=== PATIENT | female | born 1980 | race Caucasian/White ===

== ENCOUNTER 2021-03-18 05:43 | Inpatient (IN) ==
--- NOTE | 2021-03-13 10:11 | Anesthesiology Consultation ---
Date of Service March 13, 2021 Assessment & Plan Chart Review Chart Review: Acceptable Risk for Surgery and Patient NOT seen in Pre Admission Testing History Surgery Operation Date: 03/18/21 07:30 Proposed Procedures p Section in LD - Micheal Ortiz MD Height/Weight Height: 5 ft 6 in Weight: 90.718 kg Allergies Allergy/AdvReac Type Severity Reaction Status Date / Time broccoli Allergy Intermediate Abdominal Verified 03/13/21 07:36 Pain lettuce Allergy Intermediate Abdominal Verified 03/13/21 07:36 Pain No Known Drug Allergies Allergy Verified 03/13/21 07:36 Medications Home Medications Medication Instructions Recorded Confirmed Last Taken cholecalciferol (vitamin D3) 50 50 mcg PO QAM 08/28/20 03/13/21 02/27/21 08:00 mcg (2,000 unit) capsule aspirin 81 mg chewable tablet 81 mg PO QAM 02/27/21 03/13/21 02/27/21 08:00 labetalol 100 mg tablet 100 mg PO TID 02/27/21 03/13/21 02/27/21 08:00 [id number] 1 mg 1 tab PO QAM 02/27/21 03/13/21 02/27/21 08:00 tablet diphenhydramine HCl 25 mg capsule 25 mg PO HS 03/13/21 03/13/21 Unknown (Benadryl) naltrexone 4.5 mg PO HS 03/13/21 03/13/21 Unknown Past Medical History Medical History Hypertension started 02/2021 during last trimester of -- no problems prior to conceived through in vitro fertilization follows with a physician in [place]. patient states she was placed on naltrexone due to the infertility and invitro. no history of drug use. Past Family History Family History Uncle Diabetes Other No family history of adverse response to anesthesia Denies family history of Ovarian cancer Breast cancer Colorectal cancer Past Surgical History Surgical History H/O laparoscopy History of dilatation and curettage Hx of unilateral salpingectomy r/t ectopic S/P tonsillectomy [place] teeth extracted Social History Smoking Status: Former smoker tobacco type: cigarettes Do You Dip or Chew Tobacco: No Smoking End Date: 2018 Hx Alcohol Use: No Hx Substance Use: No substance use type: does not use
[2021-03-18] MEDS ORDERED: LACTATED RINGER'S 1,000 ML IV SCH ×3 (06:00→09:30)
[2021-03-18] MEDS ORDERED: cefOXitin 2,000 MG in DEXTROSE 5% 50 ML IV SCH (06:00)
[2021-03-18] MEDS ORDERED: CITRIC ACID/SODIUM CITRATE 15 ML UDC PO SCH (06:00)
[2021-03-18 06:08] LABS: Basophils # (auto) 0.02 K/uL (0-0.2); Basophils % (auto) 0.3 %; Eosinophils # (auto) 0.19 K/uL (0-0.5); Eosinophils % (auto) 2.5 %; Hematocrit (blood only) 36.7 % (37-47); Hemoglobin 12.8 g/dL (12.0-16.0); Immature Granulocytes # (auto) 0.02 K/uL (0.00-0.02); Immature Granulocytes % (auto) 0.3 %; Lymphocytes # (auto) 1.72 K/uL (1.2-3.4); Lymphocytes % (auto) 22.8 %; Mean Corpuscular Hemoglobin 32.5 pg (25-34); Mean Corpuscular Hgb Conc 34.9 g/dL (32-36); Mean Corpuscular Volume 93.1 fL (80-100); Mean Platelet Volume 9.5 fL (7.4-10.4); Monocytes # (auto) 0.92 K/uL (0.11-0.59); Monocytes % (auto) 12.2 %; Neutrophils # (auto) 4.67 K/uL (1.4-6.5); Neutrophils % (auto) 61.9 %; Platelet Count 299 K/uL (130-400); RDW Coefficient of Variation 12.7 % (11.5-14.5); RDW Standard Deviation 42.9 fL (36.4-46.3); Red Blood Count 3.94 M/uL (4.2-5.4); White Blood Count 7.54 K/uL (4.8-10.8)
[2021-03-18 06:22] LABS: INR 0.9 (0.9-1.1); Partial Thromboplastin Ratio 0.9; Partial Thromboplastin Time 24.2 Seconds (21.0-31.0); Prothrombin Time 9.3 Seconds (9.0-12.0)
[2021-03-18 06:26] LABS: BUN Creatinine Ratio 21.8 (10-20); Calcium 8.2 mg/dl (8.5-10.1); Creatinine Clr Calc Pharmacy 128.5 ml/min; Est GFR (African American) 128.1 ml/min; Est GFR (Non-African American) 110.5 ml/min; Potassium 3.9 mmol/L (3.5-5.1)
[2021-03-18] MEDS ORDERED: fentaNYL citrate 100 MCG/2 ML VIAL ONE (07:49)
[2021-03-18] MEDS ORDERED: MoRPHine SULFATE PF 1 MG/ML 10 ML AMP/VIAL ONE (07:49)
[2021-03-18] MEDS ORDERED: OXYTOCIN 10 UNITS/ML VIAL ONE (07:49)
--- NOTE | 2021-03-18 08:21 | History and Physical Report ---
ADDENDUM Originally H and P indicated that the was in a breech presentation. Since the H and P was done , we reexamined the patient and she converted to vertex. I offered the patient an induction instead of a primary , but due to her obstetrical history and complications, she decided on primary elective for delivery. Job ID: [id number]
[2021-03-18] MEDS ORDERED: NALOXONE HCL 0.08 MG in SYRINGE 1.8 ML IV PRN (08:30)
[2021-03-18] MEDS ORDERED: NALBUPHINE HCL INJ 10 MG/ML AMP IV PRN (08:30)
[2021-03-18] MEDS ORDERED: SODIUM CHLORIDE 0.9% 1000ML 1,000 ML IV SCH (08:30)
[2021-03-18] MEDS ORDERED: diphenhydrAMINE 50 MG/ML VIAL IV PRN (08:30)
[2021-03-18] MEDS ORDERED: NALOXONE HCL 1 MG in SODIUM CHLORIDE 0.9% 1000ML 1,000 ML IV PRN (08:30)
[2021-03-18] MEDS ORDERED: MoRPHine SULFATE PF 1 MG/ML 10 ML AMP/VIAL INT SPINAL ONE (08:30)
[2021-03-18] MEDS ORDERED: NALOXONE HCL 0.4 MG/1 ML VIAL/CARP IV PRN (08:30)
[2021-03-18] MEDS ORDERED: NO NARCOTICS OR SEDATIVES SCH (08:30)
[2021-03-18] MEDS ORDERED: ePHEDrine sulfate 50 MG/ML AMP IV PRN (08:30)
[2021-03-18] MEDS ORDERED: KETOROLAC 30 MG/ML VIAL IV PRN (08:30)
[2021-03-18] MEDS ORDERED: MEPERIDINE HCL 25 MG/ML CARP/VIAL IV PRN (08:30)
[2021-03-18] MEDS ORDERED: LACTATED RINGER'S 500 ML IV PRN (08:30)
--- NOTE | 2021-03-18 09:23 | Post Operative Brief Note ---
Immediate Post Op Note v1 Date of Surgery March 18, 2021 Pre & Post Diagnosis Operation Date: 03/18/21 07:30 Pre-Op Diagnosis: 37.1 weeks , Breech,Advanced Maternal Age hypertension Post-Op Diagnosis: Same; Delivery of a live male child at 0837 ( Main OR 3) I identified the patient and participated in the time-out.: Yes Procedure Operation Date: 03/18/21 07:30 Actual Procedures p Section - Micheal Ortiz MD Surgeon Micheal Ortiz MD Medical Insurance Verifier Dr Mendoza Estimated Blood Loss 400 Findings Consistent with Post-Op Diagnosis Drains [place] Catheter Anesthesia Type Spinal Complications none
[2021-03-18] MEDS ORDERED: ONDANSETRON INJ 2 MG/ML 2 ML VIAL IV PRN (09:25)
[2021-03-18] MEDS ORDERED: SENNA 8.6 MG TAB PO PRN (09:25)
[2021-03-18] MEDS ORDERED: DIPHTHERIA/TETANUS/PERTUSSIS 0.5 ML SYR/VIAL IM ONE (09:25)
[2021-03-18] MEDS ORDERED: MAGNESIUM HYDROXIDE SUSP 30 ML UDC PO PRN (09:25)
[2021-03-18] MEDS ORDERED: SUPERCREAM 0.870% 15 GM JAR EXT PRN (09:25)
[2021-03-18] MEDS ORDERED: HYDROCORTISONE ACETATE 25 MG SUPP PR PRN (09:25)
[2021-03-18] MEDS ORDERED: BENZOCAINE 20% AER SPR 82.5 GM CAN EXT PRN (09:25)
--- NOTE | 2021-03-18 09:39 | Operative Report (OR) ---
DATE OF PROCEDURE: 03/18/2021. PROCEDURE: Primary low segment section. INDICATIONS FOR SURGERY: Intrauterine , 37 weeks 2 days, unstable lie, hypertension, growth retardation. PREOPERATIVE DIAGNOSES: Intrauterine , 37 weeks 2 days, hypertension, growth retardation, u nstable lie. POSTOPERATIVE DIAGNOSES: Intrauterine , 37 weeks 2 days, hypertension, growth retardation, unstable lie. Delivered live male . SURGEON: Joe Ortiz MD. COLLEGE ATHLETE: Lukas Navarro MD. ESTIMATED BLOOD LOSS: 400 mL ANESTHESIA: Spinal. OPERATIVE FINDINGS AND PROCEDURE: The patient was brought to the OR table, correctly identified by a rmband and conversation. Spinal anesthesia was administered. Compression stockings were applied. F oley catheter was inserted aseptically in the bladder, connected to gravity drainage. Lower abdomen a nd upper thighs were painted with an alcohol based sterilizing solution, was allowed to dry for 3 min utes, and then draped in the usual sterile fashion. Level of the anesthesia was tested and found to be adequate. Pfannenstiel incision was made, carried down to the anterior fascia by sharp dissection . Hemostasis was secured by electrocauterization. Fascia was incised transversely the fa scia from the underlying muscle. Recti muscles were in the midline. Peritoneum was carefu lly raised and entered. A retractor was placed into the abdominal wall, exposing the lower uterine s egment incision was made above the vesicouterine fold. Bladder was undermined bluntly pushed off the operative field. Then, the uterus was scored with a knife and then entered bluntly with the scissor s. Clear amniotic fluid was seen at this time, there was just a small amount. Incision was then exte nded laterally with 2 fingers. A vectis retractor was applied to the head with fundal pressure, infa nt was delivered. breathing, cried spontaneously, was attended to by the coal inspector who was scrubbed and present at the time of delivery. Cord blood was stripped in to the infant then clamped and cut and cord blood was taken. Placenta was removed without difficulty. Uterus, tubes, and ova michelle were brought out through the incision. At that time, the right tube was present. The fimbria w as present. The left tube was absent and just approximately about 1 inch of the proximal portion of the left tube present. We injected 10 units of Pitocin into the myometrium itself. We delineated th e defects with ring forceps and then did a 2-layer closure. The deep layer was approximated with a c ontinuous heavy chromic gut suture. Then, the fascial layer was approximated over this with a contin uous heavy Vicryl suture. This gave good approximation to the myometrial defect. Hemostasis was goo d. Pelvis was cleansed of all blood clots and debris. The retractor was removed. Uterus, tubes, an d ovaries were reinserted into the abdomen. The bladder flap was restored with a continuous 3-0 seismograph operator helper ramon in a running fashion. Hemostasis was checked for, it was excellent and cut the sutures. We then did a careful anatomical approximation of the anterior abdominal wall. Peritoneum was closed with a mattress suture of chromic catgut. Recti muscles were approximated with interrupted [id number] suture chromic catgut. Fascia was closed with continuous interlocking suture of Vicryl on each side tied in the midline. Subcutaneous was approximated with a running plain. The skin edges were appro ximated with staple clips. Job ID: [id number]
--- NOTE | 2021-03-18 10:21 | Anesthesiology Progress Note ---
Date of Service March 18, 2021 Anesthesia Post Procedure Vital Signs Vital Signs: Temp Pulse Resp BP Pulse Ox 03/18/21 10:18 59 L 97 03/18/21 10:16 57 L 137/80 03/18/21 10:13 62 99 03/18/21 10:08 59 L 100 03/18/21 10:06 75 140/84 92 03/18/21 10:05 71 16 140/84 98 03/18/21 10:03 65 99 03/18/21 09:58 63 142/76 H 96 03/18/21 09:55 70 16 142/76 H 98 03/18/21 09:53 74 100 03/18/21 09:48 73 93 03/18/21 09:47 78 140/85 93 03/18/21 09:45 73 16 140/85 94 03/18/21 09:43 74 99 03/18/21 09:42 64 93 03/18/21 09:38 63 98 03/18/21 09:36 65 114/64 03/18/21 09:35 68 18 114/64 96 03/18/21 09:33 76 94 03/18/21 09:28 68 97 03/18/21 09:27 68 94 03/18/21 09:25 98.2 F 63 20 115/74 99 03/18/21 07:11 63 171/96 H 03/18/21 05:53 98.4 F 80 18 155/89 H 03/18/21 05:52 80 155/89 H 03/18/21 05:49 75 148/97 H Transfer of Care Handoff Completed per policy Notes Mental Status: alert / awake / arousable and participated in evaluation Nausea / Vomiting: adequately controlled Pain: adequately controlled Airway Patency, RR, SpO2: stable & adequate BP & HR: stable & adequate Hydration State: stable & adequate Neuraxial Anesthesia: was administered and sensory block is resolving Anesthetic Complications: no major complications apparent and Pt Satisfied with anesthetic care
[2021-03-18] MEDS: OXYTOCIN 20 UNITS in LACTATED RINGER'S 1,000 ML IV SCH ×2 (12:21→21:09)
[2021-03-18] MEDS: SIMETHICONE 80 MG CHEW PO SCH ×3 (13:52→21:09)
[2021-03-18] MEDS: LABETALOL HCL 100 MG TAB PO SCH ×2 (14:01→21:09)
[2021-03-18] MEDS: DOCUSATE SODIUM 100 MG CAP PO SCH (21:09)
[2021-03-19] MEDS ORDERED: diphenhydrAMINE Capsule 25 MG CAP PO PRN (02:30)
[2021-03-19] MEDS ORDERED: DC INTRASPINAL MORPHINE ONE (02:30)
[2021-03-19] MEDS ORDERED: ZOLPIDEM TARTRATE 5 MG TAB PO PRN (02:30)
[2021-03-19] MEDS ORDERED: diphenhydrAMINE 50 MG/ML VIAL IV PRN (02:30)
[2021-03-19] MEDS ORDERED: PROMETHAZINE HCL 25 MG in SODIUM CHLORIDE 0.9% 50 ML IV PRN (02:30)
[2021-03-19] MEDS ORDERED: MEPERIDINE HCL 50 MG/ML CARP IV PRN (02:30)
[2021-03-19] MEDS ORDERED: KETOROLAC 30 MG/ML VIAL IV PRN (02:30)
[2021-03-19 06:35] LABS: Basophils # (auto) 0.03 K/uL (0-0.2); Basophils % (auto) 0.2 %; Eosinophils # (auto) 0.23 K/uL (0-0.5); Eosinophils % (auto) 1.6 %; Hematocrit (blood only) 37.9 % (37-47); Hemoglobin 13.1 g/dL (12.0-16.0); Immature Granulocytes # (auto) 0.03 K/uL (0.00-0.02); Immature Granulocytes % (auto) 0.2 %; Lymphocytes # (auto) 2.62 K/uL (1.2-3.4); Lymphocytes % (auto) 17.8 %; Mean Corpuscular Hemoglobin 32.8 pg (25-34); Mean Corpuscular Hgb Conc 34.6 g/dL (32-36); Mean Corpuscular Volume 94.8 fL (80-100); Mean Platelet Volume 9.2 fL (7.4-10.4); Monocytes # (auto) 1.05 K/uL (0.11-0.59); Monocytes % (auto) 7.2 %; Neutrophils # (auto) 10.72 K/uL (1.4-6.5); Platelet Count 293 K/uL (130-400); RDW Coefficient of Variation 13.3 % (11.5-14.5); RDW Standard Deviation 45.6 fL (36.4-46.3); White Blood Count 14.68 K/uL (4.8-10.8)
[2021-03-19] MEDS: PRENATAL VITAMIN 1 TAB PO SCH (08:02)
[2021-03-19] MEDS: DOCUSATE SODIUM 100 MG CAP PO SCH ×2 (08:02→20:25)
[2021-03-19] MEDS: oxyCODONE/ACETAMINOPHEN 5mg/325mg TAB PO PRN ×3 (08:03→20:26)
[2021-03-19] MEDS: SIMETHICONE 80 MG CHEW PO SCH ×4 (08:03→20:26)
[2021-03-19] MEDS: FERROUS SULFATE 325 MG TAB PO SCH (08:03)
[2021-03-19] MEDS: LABETALOL HCL 100 MG TAB PO SCH ×3 (08:04→21:41)
[2021-03-19] MEDS: IBUPROFEN 600 MG TAB PO PRN ×3 (08:04→20:26)
--- NOTE | 2021-03-19 13:01 | Obstetrical Progress Note ---
Date of Service March 19, 2021 Assessment & Plan Admission and Anticipated Discharge Date Admission Date: March 18, 2021 Subjective abdomen soft and non tender passing flatus no calf tenderness ambulating well vaginal bleeding scant hgb 13.1 Results & Data ([facility]) Vital Signs (Past 12 Hours) Vital Signs Temp Pulse Resp BP Pulse Ox 03/19/21 08:00 36.6 C 87 16 128/80 98 03/19/21 03:25 37.1 C 77 16 119/77 98 03/19/21 02:30 16 96 03/19/21 01:30 18 96
[2021-03-19] MEDS ORDERED: bisacodyL 5 MG TABEC PO SCH (20:00)
[2021-03-20] MEDS: oxyCODONE/ACETAMINOPHEN 5mg/325mg TAB PO PRN ×2 (00:23→08:45)
[2021-03-20] MEDS: IBUPROFEN 600 MG TAB PO PRN ×2 (00:23→08:44)
[2021-03-20 06:24] LABS: Hematocrit (blood only) 33.3 % (37-47); Hemoglobin 11.1 g/dL (12.0-16.0)
[2021-03-20] MEDS: SIMETHICONE 80 MG CHEW PO SCH (08:44)
[2021-03-20] MEDS: FERROUS SULFATE 325 MG TAB PO SCH (08:44)
[2021-03-20] MEDS: LABETALOL HCL 100 MG TAB PO SCH (08:44)
[2021-03-20] MEDS: PRENATAL VITAMIN 1 TAB PO SCH (08:44)
[2021-03-20] MEDS: DOCUSATE SODIUM 100 MG CAP PO SCH (08:44)
--- NOTE | 2021-03-20 09:11 | Obstetrical Progress Note ---
Date of Service March 20, 2021 Assessment & Plan Admission and Anticipated Discharge Date Admission Date: March 18, 2021 Subjective abdomen soft and non tender incision is clean and dry no calf tenderness ambulating well vaginal bleeding scant hgb 11.1 Results & Data ([facility]) Vital Signs (Past 12 Hours) Vital Signs Temp Pulse Resp BP 03/20/21 00:15 36.9 C 77 16 132/85 03/19/21 21:40 79 136/85
[2021-03-20] MEDS ORDERED: bisacodyL 10 MG SUPP PR PRN (09:25)
--- NOTE | 2021-03-20 09:36 | Anesthesiology Progress Note ---
Date of Service March 20, 2021 Anesthesia Post Procedure Vital Signs Vital Signs: Temp Pulse Resp BP Pulse Ox 03/20/21 00:15 36.9 C 77 16 132/85 03/19/21 21:40 79 136/85 03/19/21 15:50 36.9 C 72 20 134/86 96 Pain Intensity Lower Abdomen: Pain Intensity: 4 Transfer of Care Handoff Completed per policy Notes Mental Status: alert / awake / arousable Patient Amnestic to Procedure: Yes Nausea / Vomiting: adequately controlled Pain: adequately controlled Airway Patency, RR, SpO2: stable & adequate BP & HR: stable & adequate Hydration State: stable & adequate Neuraxial Anesthesia: was administered and sensory block resolved Anesthetic Complications: no major complications apparent and Pt Satisfied with anesthetic care
--- NOTE | 2021-03-20 15:36 | Discharge Summary (DS) ---
The patient is a 4, para 1, blood type is O positive, group B strep positive. She is followe d in our office for care and delivery. This was an in vitro . She has h ad a long obstetrical history. She has lost several in vitro pregnancies before this including a set of twins at about 20 weeks. She was given baby aspirin early in her . Eventually, she had to be started on labetalol because of hypertension. Ultrasounds in the office revealed a breech pres entation. She was then scheduled at 37+ weeks for primary section and then a subsequent vis it revealed a conversion to a vertex. The patient was offered an induction of labor, but declined and opted for primary low segment cesarea n section. On the day of admission, she was given prophylactic antibiotics. She was taken to the OR where she delivered a live male infant. Procedure went well. Her preoperative hemoglobin was 12.8. Postoperatively, hemoglobin was 11.1. She did well postoperatively. She remained afebrile. Her b owel sounds returned within 24 hours. At the time of discharge, she was ambulating well, eating well and requested discharge. She will be followed in home and office, she was told to return for remova l of the christine and given prescriptions for Percocet and Motrin for pain control. Job ID: [id number]
== END 2021-03-20 12:00 | disposition home or self-care (01) | DRG 788 ==
LOC: 4S1 05:43 → EDSTATUS 07:30 → 4S2 12:36